=== PATIENT | male | born 1960 | race Hispanic/Latino ===

== ENCOUNTER 2025-04-20 07:12 | Day surgery (SDC) | payer BC ==
[~2025-04-20] VITALS: Ht 167.6 cm; Wt 83.9 kg
[2025-04-20] VITALS (11 sets, daily range): BP systolic 103–136; BP diastolic 59–82; PULSE 63–75; RESP 15–18; TEMP 97.1–98.1
[~2025-04-20 07:12] MED LIST: 0.9%NACL 1000ML 1,000 ML IV ONE
[2025-04-20] MEDS ORDERED: PRAV20TA59 PO (08:31)
[2025-04-20] MEDS ORDERED: METF-444 PO (08:31)
[2025-04-20] MEDS ORDERED: LISI5TAB21 PO (08:31)
== END 2025-04-20 10:50 | disposition home or self-care (01) ==
LOC: DAH 07:12 → ENDO 07:12
PROVIDERS: ATTEND Internal Medicine Gastroenterology
DX: R93.5 Abnormal findings on diagnostic imaging of other abdominal regions, including retroperitoneum (principal); K29.60 Other gastritis without bleeding; N28.89 Other specified disorders of kidney and ureter; K31.89 Other diseases of stomach and duodenum; E78.00 Pure hypercholesterolemia, unspecified; E11.9 Type 2 diabetes mellitus without complications; Z88.8 Allergy status to other drugs, medicaments and biological substances; Z79.899 Other long term (current) drug therapy
CPT/HCPCS: 82948 ×2; 43239; 43259; J7030 ×2; J2704; A4620; A4215 ×2; A4223; A4657; A7002; A4222; A4221; A4663; A4606; 43237; J3490